=== PATIENT | male | born 1995 | race Caucasian/White ===

== ENCOUNTER 2020-05-22 10:28 | Day surgery (SDC) | payer BC ==
[2020-05-22] VITALS (9 sets, daily range): BP systolic 100–134; BP diastolic 56–66
[~2020-05-22] VITALS: Ht 188 cm; Wt 96.3 kg
[~2020-05-22 10:28] MED LIST: VANCOMYCIN 1,500MG inj. 1,500 MG in normal saline 500ml IV soln 300 ML IV ONE; ceFAZolin 2gm in dextrose, iso 50 ML IV ONE; ringers solution, lacted 1,000 ML IV SCH
[2020-05-22] MEDS ORDERED: famotidine 20mg tablet PO ONE (11:05)
[2020-05-22] MEDS ORDERED: cloNIDine hcl/PF 100mcg/ml inj ONE (11:34)
[2020-05-22] MEDS ORDERED: midazolam 2 mg/2 ml injection ONE (11:36)
[2020-05-22] MEDS ORDERED: fentaNYL/PF 50MCG/1 ML 2ML syringe ONE (11:36)
[2020-05-22] MEDS ORDERED: propofol inj 20 ML IV ONE (11:37)
[2020-05-22] MEDS ORDERED: ROPIVAcaine 0.5% (5mg/ml) 30ml vial ONE (11:37)
[2020-05-22] MEDS ORDERED: sevoflurane 250ml liquid IH ONE (11:51)
[2020-05-22] MEDS ORDERED: ringers solution, lacted 1,000 ML IV SCH (13:02)
[2020-05-22] MEDS ORDERED: ondansetron/PF 4mg/2ml inj IV PRN (13:05)
[2020-05-22] MEDS ORDERED: meperidine/PF 25mg/ml syringe IV PRN ×3 (13:05)
[2020-05-22] MEDS ORDERED: proCHLORperazine 10 MG/2 ml inj IV PRN (13:05)
[2020-05-22] MEDS ORDERED: morphine 4 MG/ML inj SYRINge IV PRN (13:05)
[2020-05-22] MEDS ORDERED: morphine 2 MG/ML inj. syringe IV PRN (13:05)
--- NOTE | 2020-05-22 13:50 | NUR ---
[place] via [facility], accompanied by Anesthesiologist DR PETTY and report given by Anesthesiolgist. PT PLACED ON O2 AND MONITOR, S/P ORIF RIGHT FOREARM, GENERAL ANESTH WITH AXILLARY BLOCK, GOOD CAP REFILL TO FINGERS OF RIGHT HAND, PT DOES NOT HAVE SENSATION TO RIGHT ARM , DENIES ANY PAIN OR NAUSEA AT THIS TIME, WILL CONT TO ASSESS.
--- NOTE | 2020-05-22 15:00 | NUR ---
PT DISCHARGED TO HOME, DC'D PIV INTRACATH INTACT, PT TOLERATED WELL, TOLERATING PO WELL, VOIDED QS WITHOUT DIFF, INSTRUCTIONS GIVEN AND READ TO PT, PT VERBALIZED UNDERSTANDING, LEFT VIA WHEELCHAIR TO PRIVATE VEHICLE, AND HOME WITH PT'S MOM.
== END 2020-05-22 15:00 | disposition home or self-care (01) ==
LOC: PAS 10:28
PROVIDERS: ATTEND Orthopaedic Surgery
DX: S52.351A Displaced comminuted fracture of shaft of radius, right arm, initial encounter for closed fracture (principal); S52.251A Displaced comminuted fracture of shaft of ulna, right arm, initial encounter for closed fracture; F17.290 Nicotine dependence, other tobacco product, uncomplicated; F12.90 Cannabis use, unspecified, uncomplicated; G89.18 Other acute postprocedural pain; V00.131A Fall from skateboard, initial encounter; Y93.89 Activity, other specified; Y92.89 Other specified places as the place of occurrence of the external cause; Y99.8 Other external cause status
CPT/HCPCS: 25575; 64417; 73090; 76000; 76942; A6222; C1713; J0735; J2250; J2704; J3010; A4618; A6449; A7000; J2795; J3370; J7040; J7120